=== PATIENT | female | born 1955 | race Caucasian/White ===

== ENCOUNTER → 2021-08-20 | Outpatient (CLI) | payer OTHER ==
--- NOTE | 2021-08-20 17:46 | KCIC ---
LEFT HIP MRI STUDY WITHOUT CONTRAST Clinical indications: Left hip pain. TECHNIQUE: Noncontrast MRI sequences of the left hip were performed in all 3 planes. A STIR coronal s equence of both hips was performed for comparison. FINDINGS: No fracture or marrow infiltrative process or avascular necrosis is seen. There is mild lef t femoral head spurring. No significant joint effusion is seen. No loose body is seen. There is mild thinning of articular cartilage of the left hip joint. No focal articular cartilage defect is eviden t. There is no subchondral cyst formation or subchondral stress reaction bone marrow edema. The aceta bular labrum is intact and no paralabral ganglion cyst is seen. The gluteal tendons are intact and n o greater trochanteric bursitis is seen. The conjoined hamstring tendon is intact and no ischial tube rosity bursitis is seen. The iliopsoas tendon is intact and no iliopsoas bursitis is seen. No muscle edema is seen. No soft tissue mass or abscess or hematoma is evident. STIR coronal sequence demonstrates no avascular necrosis of the opposite right femoral head. There is a degenerative cyst of the right femoral head along with mild spurring of the right femoral head. No right hip joint effusion is seen. No insufficiency fracture of the upper sacrum is seen on either si de. IMPRESSION: Mild primary degenerative osteoarthritis of the left hip joint. No avascular necrosis. No other significant abnormality of the left hip joint area. There is mild primary degenerative osteoarthritis of the right hip joint as well. Electronically signed by: Sloan Fraser MD (08/20/2021 5:43 PM) [id number]
== END ==
LOC: KCIC MRI 14:36
PROVIDERS: ATTEND Physician Assistant
DX: M16.0 Bilateral primary osteoarthritis of hip (principal); W10.9XXA Fall (on) (from) unspecified stairs and steps, initial encounter; M76.892 Other specified enthesopathies of left lower limb, excluding foot; M76.891 Other specified enthesopathies of right lower limb, excluding foot; M85.671 Other cyst of bone, right ankle and foot
CPT/HCPCS: 73721